=== PATIENT | male | born 2000 | race Two or more races ===

== ENCOUNTER 2024-06-25 05:11 | Day surgery (SDC) | payer OTHER ==
[~2024-06-25 05:11] MED LIST: ZYRTEC10 M3 PO
[2024-06-25] MEDS ORDERED: DIBUCAINE 30 GM TUBE ONE (07:07)
[2024-06-25] MEDS ORDERED: HEMOSTATIC MATRIX 1 KIT KIT TOP ONE (07:07)
[2024-06-25] MEDS ORDERED: POVIDONE-IODINE 118 ML BOTT TOP ONE (07:08)
[2024-06-25] MEDS ORDERED: BUPIVACAINE HCL/MPF 0.5% 30ML VIAL ONE (07:08)
[2024-06-25] MEDS ORDERED: LIDOCAINE HCL 1%/EPINEPHRINE 20ML VIAL IJ ONE (07:08)
[2024-06-25] MEDS ORDERED: METRONIDAZOLE/SODIUM CHLORIDE 500 MG/100 ML PIGGYBACK IV ONE (07:08)
[2024-06-25] MEDS ORDERED: CEFTRIAXONE SODIUM 2,000 MG VIAL ONE (07:08)
[2024-06-25] MEDS ORDERED: BACTRIM DS TAB1 EACH PO (10:28)
[2024-06-25] MEDS ORDERED: TRAM1TAB98 PO (10:28)
[2024-06-25] MEDS ORDERED: CELECOXIB200 MG PO (10:28)
== END 2024-06-25 14:25 | disposition home or self-care (01) ==
LOC: CIR.AMB 05:11
PROVIDERS: ATTEND Surgery
DX: L05.01 Pilonidal cyst with abscess (principal); S31.000A Unspecified open wound of lower back and pelvis without penetration into retroperitoneum, initial encounter